=== PATIENT | male | born 1985 | race Caucasian/White ===

== ENCOUNTER 2021-06-02 09:51 | Emergency (ER) | payer OTHER ==
[~2021-06-02 09:51] MED LIST: LIPITOR40 MG PO
[2021-06-02 10:22] LABS: BASOPHIL 0.8 % (0-2); EOSINOPHIL 2.5 % (0-5); HCT 50.6 % (42.0-52.0); HGB 16.5 g/dl (13.2-18.0); LYMPHOCYTE 44.9 % (15-48); MCH 28.4 pg (25.0-31.0); MCHC 32.6 g/dL (32.0-36.0); MCV 87.2 fL (78.0-100.0); MONOCYTE 8.3 % (0-12); MPV 10.4 fL (6.0-9.5); NEUTROPHIL 42.3 % (41-80); NRBC 0; PLT 296 K/uL (150-400); RDW 13.1 % (11.5-14.0)
[2021-06-02 10:35] LABS: BUN/CREAT RATIO (CALC) 12.7 RATIO; CREATININE 1.02 mg/dL (0.67-1.17); POTASSIUM 4.5 mmol/L (3.5-5.1)
[2021-06-02] MEDS ORDERED: FLOMAX0.4 MG PO (11:27)
[2021-06-02] MEDS ORDERED: HYDROCODON-ACE1 EAC2 PO (11:27)
[2021-06-02] MEDS ORDERED: NAPROXEN500 MG PO (11:27)
[2021-06-02] MEDS ORDERED: ONDANSETRON ODT4 MG PO (11:27)
== END 2021-06-02 12:45 | disposition home or self-care (01) ==
LOC: FER 09:51
PROVIDERS: Internal Medicine
DX: N20.1 Calculus of ureter (principal)
CPT/HCPCS: 36415; 80048; 85025; 96372; J1170; J1885; J2405; J2550; J7030

== ENCOUNTER 2021-06-20 14:34 | Emergency (ER) | payer OTHER ==
[~2021-06-20 14:34] MED LIST changes: +FLOMAX0.4 MG PO; +HYDROCODON-ACE1 EAC2 PO; +NAPROXEN500 MG PO; +ONDANSETRON ODT4 MG PO
[2021-06-20 15:06] LABS: BASOPHIL 0.9 % (0-2); EOSINOPHIL 1.1 % (0-5); HCT 47.7 % (42.0-52.0); HGB 15.9 g/dl (13.2-18.0); LYMPHOCYTE 26.8 % (15-48); MCH 28.6 pg (25.0-31.0); MCHC 33.3 g/dL (32.0-36.0); MCV 85.9 fL (78.0-100.0); MONOCYTE 7.4 % (0-12); MPV 10.1 fL (6.0-9.5); NEUTROPHIL 62.9 % (41-80); NRBC 0; PLT 234 K/uL (150-400); RBC 5.55 M/uL (4.70-6.00); RDW 12.8 % (11.5-14.0); WBC 6.4 K/uL (4.0-10.5)
[2021-06-20 16:05] LABS: BILIRUBIN - TOTAL 0.3 mg/dL (0.2-1.0); BUN/CREAT RATIO (CALC) 10.4 RATIO; CREATININE 0.96 mg/dL (0.67-1.17); GLOBULIN (CALCULATION) 3.2 g/dL; POTASSIUM 4.2 mmol/L (3.5-5.1); TOTAL PROTEIN 7.2 g/dL (6.4-8.2)
[2021-06-20 16:06] LABS: CHOLESTEROL 223 mg/dL (<200); HDL 42 mg/dL (40-60); LDL - DIRECT 153 mg/dL (<100); TRIGLYCERIDES 156 mg/dL (<150)
[2021-06-20 16:10] LABS: CKMB 0.5 ng/mL (0.0-3.6)
[2021-06-20] MEDS ORDERED: NAPROXEN500 MG PO (17:06)
== END 2021-06-20 17:21 | disposition home or self-care (01) ==
LOC: FER 14:34
PROVIDERS: Emergency Medicine
DX: R07.89 Other chest pain (principal); M54.12 Radiculopathy, cervical region
CPT/HCPCS: 36415; 71046; 72040; 80053; 80061; 82553; 84484; 85025; 93005